=== PATIENT | male | born 1930 | race Caucasian/White ===

== ENCOUNTER 2018-03-25 13:20 | Emergency (ER) | payer MEDICARE ==
[~2018-03-25] VITALS: Ht 182.9 cm; Wt 75.9 kg
[~2018-03-25 13:20] MED LIST: ALLOPURINOL100 MG PO; AMLODIPINE5 MG PO; ATENOLOL50 MG PO; AUGMENTIN500TAB PO; BL ADULT ASA81 MG PO; CENTRUM PO; CLONIDINE0.1 MG PO; CRESTOR40 MG PO; LISINOPRIL10 MG PO; PREDNISONE10 MG PO; TAMSULOSIN0.4 MG PO; TENORMIN100 MG PO; TERAZOSIN5 MG PO; TRAMADOL HCL50 MG PO; ZESTRIL/PRIN5 MG/TA1 PO
[2018-03-25] MEDS ORDERED: MUPIROCIN21 TOP (13:46)
[2018-03-25 14:43] VITALS: BP 121/57
== END 2018-03-25 14:42 | disposition home or self-care (01) ==
LOC: ED 13:20
DX: S80.812A Abrasion, left lower leg, initial encounter (principal); I10 Essential (primary) hypertension; E78.5 Hyperlipidemia, unspecified; W07.XXXA Fall from chair, initial encounter; Z79.01 Long term (current) use of anticoagulants

== ENCOUNTER 2019-04-02 16:56 | Observation (INO) | payer MEDICARE ==
[~2019-04-02] VITALS: Ht 182.9 cm; Wt 72.6 kg
[~2019-04-02 16:56] MED LIST changes: +MUPIROCIN21 TOP
[2019-04-02] MEDS ORDERED: PREDNISONE1 MG PO (17:39)
[2019-04-02] MEDS ORDERED: VITAMIN D H1000 UNIT (17:40)
[2019-04-02] MEDS ORDERED: NORVASC2.5 M1 PO (17:40)
[2019-04-02] MEDS ORDERED: FINASTERIDE5 MG PO (17:42)
[2019-04-02] MEDS ORDERED: GABAPENTIN100 MG PO (17:42)
[2019-04-02] MEDS ORDERED: CRESTOR10 MG PO (17:42)
[2019-04-02 18:25] LABS: HEMATOCRIT 36.2 % (39.0-50.0); IMMATURE GRANULOCYTES 0.4 % (0.0-5.0); MEAN CORPUSCULAR HGB 29.4 pG CALC (26.0-32.0); MEAN CORPUSCULAR HGB CONC 32.3 g/L CALC (32.0-36.0); NEUT# 3.64 thou/uL (1.82-7.42); RED BLOOD COUNT 3.98 mill/uL (4.70-6.10)
[2019-04-02 18:27] LABS: HEMOGLOBIN 11.7 g/dl (14.0-18.0)
[2019-04-02 18:42] LABS: INTERNATIONAL NORMALIZED RATIO 1.1 RATIO (0.7-1.3); PROTHROMBIN TIME 11.3 SECONDS (9.0-12.5)
[2019-04-02 18:45] LABS: ALBUMIN 3.2 g/dL (3.2-5.0); ALKALINE PHOSPHATASE 66 u/l (38-126); BILIRUBIN, TOTAL 0.5 mg/dL (0.0-1.4); BUN 16 mg/dL (8-23); BUN/CREATININE RATIO 24 (12-20 (CALC)); CHLORIDE 98 mmol/l (95-108); CREATININE 0.7 mg/dL (0.7-1.3); GFR > 60 ML/MIN (>=60 (CALC)); GFR FOR AFR.AMER. > 60 ML/MIN (>=60 (CALC)); POTASSIUM 4.6 mmol/l (3.5-5.1); SGOT/AST 46 u/l (19-48); TOTAL PROTEIN 6.4 g/dL (6.3-8.2)
[2019-04-02 18:46] LABS: ANION GAP 13 (6-22 (CALC)); CARBON DIOXIDE 23 mmol/l (22-30); SODIUM 129 mmol/l (137-146)
[2019-04-02 20:10] VITALS: BP 133/81
[2019-04-02 23:00] VITALS: BP 102/64
[2019-04-03 04:03] VITALS: BP 120/62
[2019-04-03 05:55] LABS: HEMATOCRIT 35.8 % (39.0-50.0); HEMOGLOBIN 11.5 g/dl (14.0-18.0); IMMATURE GRANULOCYTES 0.5 % (0.0-5.0); MEAN CELL VOLUME 89.9 fL CALC (80.0-100.0); MEAN CORPUSCULAR HGB 28.9 pG CALC (26.0-32.0); MEAN CORPUSCULAR HGB CONC 32.1 g/L CALC (32.0-36.0); NEUT# 3.36 thou/uL (1.82-7.42); RED BLOOD COUNT 3.98 mill/uL (4.70-6.10); RED CELL DISTRI WIDTH 15.1 % (11.5-15.5)
[2019-04-03 06:27] LABS: ANION GAP 12 (6-22 (CALC)); BUN 12 mg/dL (8-23); BUN/CREATININE RATIO 20 (12-20 (CALC)); CARBON DIOXIDE 25 mmol/l (22-30); CHLORIDE 98 mmol/l (95-108); CREATININE 0.6 mg/dL (0.7-1.3); GFR > 60 ML/MIN (>=60 (CALC)); GFR FOR AFR.AMER. > 60 ML/MIN (>=60 (CALC)); POTASSIUM 4.1 mmol/l (3.5-5.1); SODIUM 131 mmol/l (137-146)
[2019-04-03 07:56] VITALS: BP 122/71
[2019-04-03 12:00] VITALS: BP 96/54
[2019-04-03 16:00] VITALS: BP 110/60
[2019-04-03 18:54] VITALS: BP 129/83
[2019-04-04 00:30] VITALS: BP 141/88
[2019-04-04 04:59] VITALS: BP 134/82
[2019-04-04 05:44] LABS: HEMATOCRIT 37.5 % (39.0-50.0); HEMOGLOBIN 12.2 g/dl (14.0-18.0); IMMATURE GRANULOCYTES 0.3 % (0.0-5.0); MEAN CELL VOLUME 89.7 fL CALC (80.0-100.0); MEAN CORPUSCULAR HGB 29.2 pG CALC (26.0-32.0); MEAN CORPUSCULAR HGB CONC 32.5 g/L CALC (32.0-36.0); NEUT# 3.89 thou/uL (1.82-7.42); RED BLOOD COUNT 4.18 mill/uL (4.70-6.10); RED CELL DISTRI WIDTH 15.2 % (11.5-15.5)
[2019-04-04 06:12] LABS: ANION GAP 14 (6-22 (CALC)); BUN 18 mg/dL (8-23); BUN/CREATININE RATIO 28 (12-20 (CALC)); CARBON DIOXIDE 24 mmol/l (22-30); CHLORIDE 98 mmol/l (95-108); CREATININE 0.7 mg/dL (0.7-1.3); GFR > 60 ML/MIN (>=60 (CALC)); GFR FOR AFR.AMER. > 60 ML/MIN (>=60 (CALC)); POTASSIUM 4.4 mmol/l (3.5-5.1); SODIUM 131 mmol/l (137-146)
[2019-04-04 09:00] VITALS: BP 94/49
[2019-04-04 11:05] VITALS: BP 107/65
[2019-04-04] MEDS ORDERED: OMNICEF300 MG PO (15:30)
[2019-04-04 15:48] VITALS: BP 122/57
== END 2019-04-04 17:23 | disposition home or self-care (01) ==
LOC: ED 16:56 → ED-I 18:53 → ED 19:10 → MS2 19:11
PROVIDERS: Nurse Practitioner Family; ADMIT Internal Medicine; ATTEND Internal Medicine
DX: J18.9 Pneumonia, unspecified organism (principal); I10 Essential (primary) hypertension; I25.10 Atherosclerotic heart disease of native coronary artery without angina pectoris; E78.5 Hyperlipidemia, unspecified; N40.0 Benign prostatic hyperplasia without lower urinary tract symptoms; H40.9 Unspecified glaucoma; Z95.1 Presence of aortocoronary bypass graft; Z87.891 Personal history of nicotine dependence; R06.02 Shortness of breath
CPT/HCPCS: G0378

== ENCOUNTER 2019-04-08 14:59 | Inpatient (IN) | payer MEDICARE ==
[~2019-04-08] VITALS: Ht 182.9 cm; Wt 69.1 kg
[~2019-04-08 14:59] MED LIST changes: +CRESTOR10 MG PO; +FINASTERIDE5 MG PO; +GABAPENTIN100 MG PO; +NORVASC2.5 M1 PO; +OMNICEF300 MG PO; +PREDNISONE1 MG PO; +VITAMIN D H1000 UNIT
--- NOTE | 2019-04-08 15:26 | NUR ---
PT TO ROOM FOR EXAM
[2019-04-08] MEDS ORDERED: LASIX20 MG PO (15:42)
[2019-04-08 15:51] LABS: HEMATOCRIT 40.2 % (39.0-50.0); HEMOGLOBIN 13.3 g/dl (14.0-18.0); IMMATURE GRANULOCYTES 0.4 % (0.0-5.0); MEAN CELL VOLUME 89.3 fL CALC (80.0-100.0); MEAN CORPUSCULAR HGB 29.6 pG CALC (26.0-32.0); MEAN CORPUSCULAR HGB CONC 33.1 g/L CALC (32.0-36.0); NEUT# 5.69 thou/uL (1.82-7.42); RED BLOOD COUNT 4.5 mill/uL (4.70-6.10); RED CELL DISTRI WIDTH 14.6 % (11.5-15.5)
--- NOTE | 2019-04-08 16:05 | NUR ---
EKG COMPLETED AT THIS TIME; O2 SATURATION NOTED 87% 2L NC APPLIED; PT DENIES PAIN OR SOB; VSS; SPOUSE AT BEDSIDE; WILL CONTINUE TO MONITOR
[2019-04-08 16:09] LABS: ALKALINE PHOSPHATASE 81 u/l (38-126); BUN 26 mg/dL (8-23); BUN/CREATININE RATIO 32 (12-20 (CALC)); CARBON DIOXIDE 24 mmol/l (22-30); CHLORIDE 88 mmol/l (95-108); CREATININE 0.8 mg/dL (0.7-1.3); GFR > 60 ML/MIN (>=60 (CALC)); GFR FOR AFR.AMER. > 60 ML/MIN (>=60 (CALC)); POTASSIUM 4.6 mmol/l (3.5-5.1); TOTAL PROTEIN 7.4 g/dL (6.3-8.2)
[2019-04-08 16:11] LABS: ALBUMIN 3.9 g/dL (3.2-5.0); ANION GAP 17 (6-22 (CALC)); BILIRUBIN, TOTAL 0.9 mg/dL (0.0-1.4); SGOT/AST 99 u/l (19-48); SODIUM 124 mmol/l (137-146)
[2019-04-08 16:20] LABS: MYOGLOBIN 292 ng/mL (0 - 121)
--- NOTE | 2019-04-08 16:43 | NUR ---
PT TO RADIOLOGY AT THIS TIME IN STABLE CONDITION AT THIS TIME
--- NOTE | 2019-04-08 17:39 | NUR ---
PT ASSISTED TO COMFORTABLE POSITION ON STRETCHER; VSS; SPOUSE AT BEDSIDE; CALL LIGHT WITHIN REACH; WILL CONTINUE TO MONITOR
[2019-04-08 17:50] LABS: URINE BILIRUBIN - DIPSTICK NEGATIVE (NEGATIVE); URINE BLOOD DIPSTICK SMALL (NEGATIVE); URINE COLOR YELLOW; URINE GLUCOSE - DIPSTICK NEGATIVE (NEGATIVE); URINE KETONE NEGATIVE (NEGATIVE); URINE LEUK ESTERASE NEGATIVE (NEGATIVE); URINE NITRITE - DIPSTICK NEGATIVE (Negative); URINE PROTEIN - DIPSTICK NEGATIVE (NEG-TRACE); URINE SPECIFIC GRAVITY >=1.030; URINE UROBILINOGEN - DIPSTICK 0.2 E.U./dL (0.2)
[2019-04-08 17:51] LABS: URINE RBC 0-2 RBC/hpf (0-5); URINE WBC 0-2 WBC/hpf (0-5)
--- NOTE | 2019-04-08 18:30 | NUR ---
PT ASSISTED TO USE URINAL, 300ML YELLOW URINE NOTED; VSS; MONITORING DEVICES IN PLACE; WILL CONTINUE TO MONITOR
--- NOTE | 2019-04-08 18:56 | NUR ---
REPORT CALLED TO LIDIA WHITLOCK
--- NOTE | 2019-04-08 18:59 | NUR ---
UOP 500 CC
--- NOTE | 2019-04-08 19:10 | NUR ---
TO ROOM VIA STRETCHER
[2019-04-08 19:20] VITALS: BP 151/85
[2019-04-09] VITALS (8 sets, daily range): BP systolic 78–155; BP diastolic 40–89
--- NOTE | 2019-04-09 00:46 | NUR ---
PATIENT RESTING IN BED WITH O2 VIA NASAL CANNULA IN PLACE AT 2LPM. TELE MONITOR IN PLACE. C/IO GERALIZED PAIN AND MEDICATED WITH TYLENOL 650MG PO. VOIDING QS CLEAR YELLOW URINE. SALINE LOCK TO RIGHT AC INTACT. SAFETY PRECAUTIONS REINFORCED. CALL LIGHT IN REACH. WILL CONT TO MONITOR.
[2019-04-09 05:38] LABS: HEMATOCRIT 38.9 % (39.0-50.0); IMMATURE GRANULOCYTES 0.3 % (0.0-5.0); MEAN CORPUSCULAR HGB 29.1 pG CALC (26.0-32.0); MEAN CORPUSCULAR HGB CONC 33.4 g/L CALC (32.0-36.0); NEUT# 4.96 thou/uL (1.82-7.42); RED BLOOD COUNT 4.47 mill/uL (4.70-6.10); RED CELL DISTRI WIDTH 14.6 % (11.5-15.5)
[2019-04-09 05:55] LABS: ANION GAP 16 (6-22 (CALC)); BUN 22 mg/dL (8-23); BUN/CREATININE RATIO 31 (12-20 (CALC)); CARBON DIOXIDE 25 mmol/l (22-30); CHLORIDE 87 mmol/l (95-108); CREATININE 0.7 mg/dL (0.7-1.3); GFR > 60 ML/MIN (>=60 (CALC)); GFR FOR AFR.AMER. > 60 ML/MIN (>=60 (CALC)); SODIUM 124 mmol/l (137-146)
--- NOTE | 2019-04-09 08:00 | NUR ---
PT SEEN FRAIL, ELDERLY, BUT ALERT AND ORIENTED X 3. LUNGS CLEAR, 2 LPM NC, SHORT OF BREATH WITH EXERTION.
--- NOTE | 2019-04-09 12:00 | NUR ---
PT TO ULTRASOUND FOR THORACENTESIS. NO COMPLAINTS, NO SHORTNESS OF BREATH NOTED. DAUGHTER KAY IN OR UPDATED, .
--- NOTE | 2019-04-09 16:00 | NUR ---
PT WITH 2 LITERS REMOVED FROM RIGHT LUNG, TO RETURN TOMORROW FOR LEFT SIDE. NO COMPLAINTS, NO DISTRESS. AT BEDSIDE INTERMITTENTLY, DAUGHTER UPDATED ON PHONE.
--- NOTE | 2019-04-09 21:02 | NUR ---
PATIENT RESTING IN BED AT THIS TIME WITH O2 VIA NASAL CANNULA IN PLACE. ALERT AND ORIENTEDX3. NS BOLUS COMPLETED. BP-100/50, HR-60 AND O2 SAT 98 ON O2. HOB SLIGHTLY ELEVATED. TELE MONITOR IN PLACE. IV SITE TO LEFT AC INTACT AND APPEARS HEALTHY AT THIS TIME. SAFETY PRECAUTIONS REINFORCED. CALL LIGHT IN REACH. WILL CONT TO MONITOR.
--- NOTE | 2019-04-09 22:42 | NUR ---
PATIENT RESTING IN BED WATCHING TV. VS-100/57, HR60, B7DSZ-10% ON O2VIA NASAL CANNULA IN PLACE. PATIENT MEDICATED FOR SLEEP WITH SONATA 5MG PO. SPOKE WITH PATIENT DAUGHTER KAY EARLIER WITH UPDATE. SAFETY PRECAUTIONS REINFORCED. CALL LIGHT IN REACH. WILL CONT TO MONITOR.
--- NOTE | 2019-04-09 23:46 | NUR ---
PATIENT RESTING IN BED WITH O2 VIA NASAL CANNULA IN PLACE. MIDNIGHT LASIX HELD FOR HYPOTENSION-DR. IQBAL IS AWARE. AWAITING MIODNIGHT TROP TO BE DRAWN. SAFETY PRECAUTIONS REINFORCED. CALL LIGHT IN REACH. WILL CONT TO MONITOR,
--- NOTE | 2019-04-09 23:46 | NUR ---
PATIENT RESTING IN BED WITH O2 VIA NASAL CANNULA IN PLACE. MIDNIGHT LASIX HELD DUE TO HTN. AWAITING MIDNIGHT TROP TO BE DRAWN. SAFETY PRECAUTIONS REINFORCED. CALL LIGHT IN REACH, WILL CONT TO MONITOR.
[2019-04-10 00:42] VITALS: BP 96/56
--- NOTE | 2019-04-10 02:00 | NUR ---
PATIENT RESTING IN BED AT THIS TIME-STATES THAT HE JUST WOKE UP. ALERT AND ORIENTEDX3. VOIDED 200CC OF YELLOW URINE IN URINAL. TELE MONITOR IN PLACE. 0000 TROP-0.121-TRENDING DOWN. O2 VIA NASAL CANNULA IN PLACE. RIGHT BREATH SOUNDS CLEAR. SMALL GAUZE BANDAGE TO POST BACK CDI. LEFT LUNG DIMINISHED. FOR THORACENTESIS ON THE LEFT LUNG TODAY. PATIENT WITH TRACE EDEMA TO BLE. SAFETY PRECAUTIONS REINFORCED. CALL LIGHT IN REACH. WILL CONT TO MONITOR.
[2019-04-10 04:25] VITALS: BP 117/67
[2019-04-10 05:38] LABS: HEMATOCRIT 36.4 % (39.0-50.0); HEMOGLOBIN 12.3 g/dl (14.0-18.0); IMMATURE GRANULOCYTES 0.4 % (0.0-5.0); MEAN CELL VOLUME 86.7 fL CALC (80.0-100.0); MEAN CORPUSCULAR HGB 29.3 pG CALC (26.0-32.0); MEAN CORPUSCULAR HGB CONC 33.8 g/L CALC (32.0-36.0); NEUT# 5.24 thou/uL (1.82-7.42); RED BLOOD COUNT 4.2 mill/uL (4.70-6.10); RED CELL DISTRI WIDTH 14.6 % (11.5-15.5)
[2019-04-10 06:06] LABS: ANION GAP 11 (6-22 (CALC)); BUN 24 mg/dL (8-23); BUN/CREATININE RATIO 28 (12-20 (CALC)); CARBON DIOXIDE 28 mmol/l (22-30); CHLORIDE 90 mmol/l (95-108); CREATININE 0.9 mg/dL (0.7-1.3); GFR > 60 ML/MIN (>=60 (CALC)); GFR FOR AFR.AMER. > 60 ML/MIN (>=60 (CALC)); MAGNESIUM 1.7 mg/dL (1.6-2.3); SODIUM 125 mmol/l (137-146)
[2019-04-10 07:39] VITALS: BP 116/61
--- NOTE | 2019-04-10 08:00 | NUR ---
PT IS AWAKE, ALERT, ORIENTED X 3, FRAIL IN APPEARANCE. PT OOB IN CHAIR FOR BREAKFAST. PT AWARE OF PENDING U/S WITH THORACENTESIS TO LEFT SIDE TODAY.
[2019-04-10 10:50] VITALS: BP 105/55
--- NOTE | 2019-04-10 12:00 | NUR ---
PT RETURNS FROM U/S, HAS HAD 1.2 LITERS REMOVED FROM LEFT LUNG EFFUSION. NO COUGH, NO SHORTNESS OF BREATH. PT OOB IN RECLINER, NOW BACK IN BED. NO EVIDENCE OF DISTRESS.
[2019-04-10 15:26] VITALS: BP 98/52
--- NOTE | 2019-04-10 16:00 | NUR ---
PT AT REST IN THE BED THIS AFTERNOON, TIRED FROM THORACENTESIS. PT UPDATED ON PLAN OF CARE, WILL BE HERE ANOTHER DAY OR SO.
--- NOTE | 2019-04-10 19:15 | NUR ---
PT RESTING IN BED WATCHING TV . A&O X3. NO DISTRESS NOTED AT THIS TIME. ASSESSMENT COMPLETED. NO NEEDS AT THIS TIME. CALL LIGHT IN REACH. CONTINUE TO MONITOR.
--- NOTE | 2019-04-10 19:15 | NUR ---
IS DEVICE GIVEN TO PT. EXPLAINED THE REASONING BEHIND IT AND HOW TO USE IT. PT VERBALIZED UNDERSTANDING AND TAUGHT BACK. EXPLAINED TO THE PT THAT IT SHOULD BE USED 10XS/HOUR WHILE AWAKE.
[2019-04-10 20:09] VITALS: BP 98/53
--- NOTE | 2019-04-11 | NUR ---
PT RESTING IN BED, EYES CLOSED. NO SIGNS OF DISTRESS NOTED. BREATHS EVEN AND UNLABORED. CALL LIGHT IN REACH. CONTINUE TO MONITOR.
[2019-04-11 00:53] VITALS: BP 96/52
--- NOTE | 2019-04-11 04:03 | NUR ---
PT RESTING IN BED. STATES HE HAS SLEPT ONLY A FEW HOURS TONIGHT. STATES HE WILL TRY AND GO BACK TO SLEEP. NO OTHER NEEDS AT THIS TIME. CALL LIGHT IN REACH. CONTINUE TO MONITOR.
[2019-04-11 04:08] VITALS: BP 103/53
[2019-04-11 05:15] LABS: HEMATOCRIT 38.4 % (39.0-50.0); HEMOGLOBIN 12.8 g/dl (14.0-18.0); IMMATURE GRANULOCYTES 0.3 % (0.0-5.0); MEAN CELL VOLUME 86.9 fL CALC (80.0-100.0); MEAN CORPUSCULAR HGB CONC 33.3 g/L CALC (32.0-36.0); NEUT# 4.55 thou/uL (1.82-7.42); RED BLOOD COUNT 4.42 mill/uL (4.70-6.10)
[2019-04-11 05:28] LABS: ANION GAP 10 (6-22 (CALC)); BUN 23 mg/dL (8-23); BUN/CREATININE RATIO 30 (12-20 (CALC)); CARBON DIOXIDE 28 mmol/l (22-30); CHLORIDE 93 mmol/l (95-108); CREATININE 0.8 mg/dL (0.7-1.3); GFR > 60 ML/MIN (>=60 (CALC)); GFR FOR AFR.AMER. > 60 ML/MIN (>=60 (CALC)); MAGNESIUM 1.9 mg/dL (1.6-2.3); SODIUM 127 mmol/l (137-146)
--- NOTE | 2019-04-11 06:16 | NUR ---
PT RESTING IN BED WATCHING TV. STATES HE WAS ABLE TO SLEEP A LITTLE BIT MORE. NO OTHER NEEDS AT THIS TIME. CALL LIGHT IN REACH. CONTINUE TO MONITOR.
[2019-04-11 07:47] VITALS: BP 107/58
--- NOTE | 2019-04-11 08:30 | NUR ---
PT TRANSPORTED TO HAVE ECHO COMPLTED VIA WC
--- NOTE | 2019-04-11 08:55 | NUR ---
PT RETURNED FROM ECHO NO DISTRESS NOTED.
--- NOTE | 2019-04-11 09:00 | NUR ---
ASSESSMENT IS COMPLETED: IV SITE IS FREE FROM REDNESS OR EDEMA. HR IS REG,PULSES ARE STRONG X4, ABD IS SOFT WITH ACTIVE BS. BREATH SOUNDS ARE CLEAR,BILATERALLY, CONTINUE TO OSBERVE AND MONITOR.
[2019-04-11 10:50] VITALS: BP 101/58
--- NOTE | 2019-04-11 11:30 | NUR ---
PATIENT PERFORMED GAIT TRAINING USING CANE, 250 FEET, CGA/SBA FOR SAFETY. VERBAL CUES TO [employer] DDBE TO PREVENT DROPPING O2 SAT LEVEL AND SUSTAIN PROLONGED AMBULATION. AMPAC = 18
--- NOTE | 2019-04-11 12:45 | NUR ---
PT IS SITTING IN THE CHAIR, NO DISTRESS NOTED. IV SITE IS FREE FROM REDNESS OR EDEMA.
[2019-04-11] MEDS ORDERED: LISINOPRIL10 MG PO (13:06)
--- NOTE | 2019-04-11 14:54 | NUR ---
IV SITE DISCONTINUED CATHETER INTAC.T NO REDNESS OR EDEMA. DISCHARGE INSTRUCTIONS GIVEN AND VERBALIZED UNDERSTANDING. FAMILY IN THE ROOM. Discharge instructions given. Patient verbalizes understanding of same. Discharged in stable condition via Wheelchair to Home with family. All belongings sent with pt.
== END 2019-04-11 14:54 | disposition home health service (06) | DRG 291 ==
LOC: ED 14:59 → ED-I 17:54 → ED 18:09 → MS2 18:10
PROVIDERS: Emergency Medicine; Nurse Practitioner Family; ADMIT Internal Medicine; ATTEND Internal Medicine
PROC: 0W993ZZ Drainage of Right Pleural Cavity, Percutaneous Approach (ICD-10-PCS; 2019-04-09)
PROC: 0W9B3ZZ Drainage of Left Pleural Cavity, Percutaneous Approach (ICD-10-PCS; principal; 2019-04-10)
DX: I11.0 Hypertensive heart disease with heart failure (principal); J18.9 Pneumonia, unspecified organism; E87.1 Hypo-osmolality and hyponatremia; J91.8 Pleural effusion in other conditions classified elsewhere; I50.23 Acute on chronic systolic (congestive) heart failure; I25.10 Atherosclerotic heart disease of native coronary artery without angina pectoris; E78.5 Hyperlipidemia, unspecified; G62.9 Polyneuropathy, unspecified; H40.9 Unspecified glaucoma; N40.0 Benign prostatic hyperplasia without lower urinary tract symptoms; Z87.891 Personal history of nicotine dependence; Z87.01 Personal history of pneumonia (recurrent); Z95.1 Presence of aortocoronary bypass graft
CPT/HCPCS: J1650; Q9967